=== PATIENT | female | born 1975 | race Caucasian/White ===

== ENCOUNTER 2022-06-27 12:11 | Inpatient (IN) | payer MEDICAID ==
[~2022-06-27] VITALS: Ht 172.7 cm; Wt 98.4 kg
--- NOTE | 2022-06-27 12:18 | NUR ---
Patient bibra88 for sob, HHn w albuterol during transport, on cpap upon arrival. Connected to the monitor and pulse ox. Kept comfortable, will continue to monitor accordingly.
[2022-06-27] MEDS ORDERED: Magnesium 1GM/D5W 100ML PREMIX 100 ML IV ONE (12:19)
[2022-06-27] MEDS ORDERED: methylPREDNISolone SOD SUCC 125 MG/2ML VIAL ONE (12:19)
[2022-06-27] MEDS ORDERED: ALBUTEROL FS 2.5 MG/3 ML VIAL.NEB CONTNEB ONE ×2 (12:30→15:00)
[2022-06-27] MEDS ORDERED: IPRATROPIUM NEB FS 0.5 MG/2.5 ML AMPUL.NEB NEB ONE ×2 (12:30→15:00)
[2022-06-27] MEDS ORDERED: Magnesium 1GM/D5W 100ML PREMIX 200 ML IV ONE (12:30)
[2022-06-27] MEDS ORDERED: methylPREDNISolone SOD SUCC 125 MG/2ML VIAL IV ONE (12:30)
[2022-06-27 12:32] LABS: ABG BASE EXCESS -0.5 mmol/L; ABG PCO2 29.8 mmHg (35.0-45.0); ABG PH 7.482 (7.350-7.450); ABG PO2 66.3 mmHg (75.0-100.0); COHb 0.5 % (0.5-1.5); MetHb 0.2 % (0.0-1.5); O2Hb 93.4 % (94.0-97.0); SITE, ABG Left Radial; VENT MODE, BG CPAP
[2022-06-27 12:37] LABS: BASOPHILS # (AUTO) 0.1 K/uL (0.0-0.2); BASOPHILS % (AUTO) 0.9 % (0.0-2.0); EOSINOPHILS % (AUTO) 2.5 % (0.0-6.0); HEMATOCRIT 45 % (33-45); HEMOGLOBIN 15.4 g/dL (11.5-14.8); LYMPHOCYTES % (AUTO) 23.1 % (20.0-44.0); MEAN CORPUSCULAR HGB CONC 34 g/dl (31.0-36.0); MEAN CORPUSCULAR VOLUME 91 fL (82-100); MONOCYTES # (AUTO) 0.5 K/uL (0.1-1.30); MONOCYTES % (AUTO) 5.9 % (2.0-12.0); NEUTROPHILS # (AUTO) 5.9 K/uL (1.8-8.9); NEUTROPHILS % (AUTO) 67.6 % (43.0-81.0); PLATELET COUNT (AUTO) 263 K/uL (150-450); RED BLOOD CELL COUNT(AUTO) 4.98 MIL/uL (4.0-5.2); WHITE BLOOD COUNT (AUTO) 8.7 K/uL (4.3-11.0)
[2022-06-27] MEDS ORDERED: IPRA3AMP23 NEB (12:51)
[2022-06-27] MEDS ORDERED: LOSA25TA27 PO (12:51)
[2022-06-27] MEDS ORDERED: ALBU18HF2 IH (12:51)
[2022-06-27] MEDS ORDERED: TIOT4MIS2 INH (12:51)
[2022-06-27] MEDS ORDERED: MONT10TA22 PO (12:51)
[2022-06-27] MEDS ORDERED: VANCOMYCIN 1 GM in IV D5W 250 ML IV ONE (13:00)
[2022-06-27] MEDS ORDERED: PIPERACILLIN /TAZOBACTAM 3.375 G in IV D5W 50 ML IV ONE (13:00)
--- NOTE | 2022-06-27 13:02 | NUR ---
MOVE SHEET SUBMITTED.
[2022-06-27] MEDS ORDERED: FLUT1BLS IH (13:12)
--- NOTE | 2022-06-27 13:15 | NUR ---
covid swab and flu collected and sent to lab.
[2022-06-27] MEDS ORDERED: ALBUTEROL FS 2.5 MG/3 ML VIAL.NEB ONE ×3 (14:11→19:46)
[2022-06-27] MEDS ORDERED: IPRATROPIUM NEB FS 0.5 MG/2.5 ML AMPUL.NEB ONE ×3 (14:12→19:46)
[2022-06-27 14:17] LABS: CALCIUM, SERUM 9.1 mg/dL (8.5-10.1); CARBON DIOXIDE 21 mmol/L (21-32); CHLORIDE 104 mmol/L (98-107); GLUCOSE 126 mg/dL (74-106); POTASSIUM 4.1 mmol/L (3.5-5.1); SODIUM SERUM 138 mmol/L (136-145); UREA NITROGEN, BLOOD 18 mg/dL (7-18)
[2022-06-27 14:28] LABS: ALANINE AMINOTRANSFERASE 44 U/L (12-78); ALBUMIN 4.6 g/dL (3.4-5.0); ALKALINE PHOSPHATASE 76 U/L (46-116); ASPARTATE AMINOTRANSFERASE 20 U/L (15-37); BILIRUBIN,DIRECT 0.1 mg/dL (0.0-0.2); BILIRUBIN,TOTAL 0.6 mg/dL (0.2-1.0); TOTAL PROTEIN, SERUM 7.8 g/dL (6.4-8.2)
[2022-06-27] MEDS ORDERED: TERBUTALINE SULFATE 1 MG/ML VIAL SQ PRN (14:30)
--- NOTE | 2022-06-27 14:46 | NUR ---
[facility] CALLED AUTOMATIC RIVETING MACHINE OPERATOR PAGED.
[2022-06-27] MEDS ORDERED: ACETYLCYSTEINE 10% SOLN 400 MG/4 ML VIAL NEB ONE (15:00)
[2022-06-27 15:28] LABS: ABG BASE EXCESS -1.6 mmol/L; ABG PCO2 18.7 mmHg (35.0-45.0); ABG PH 7.585 (7.350-7.450); ABG PO2 462.4 mmHg (75.0-100.0); COHb 0.3 % (0.5-1.5); MetHb 0.1 % (0.0-1.5); SITE, ABG Right Radial; VENT MODE, BG HFNC 40L 100%
[2022-06-27] MEDS: IPRATROPIUM NEB FS 0.5 MG/2.5 ML AMPUL.NEB NEB SCH ×3 (15:46→21:07)
[2022-06-27] MEDS: ALBUTEROL FS 2.5 MG/3 ML VIAL.NEB NEB SCH ×4 (15:46→23:23)
[2022-06-27] MEDS ORDERED: LEVOFLOXACIN 750 MG /D5W 150ML 150 ML IV ONE (16:24)
[2022-06-27] MEDS ORDERED: MAG HYDROX/AL HYDROX/SIMETH 30 ML UDC PO PRN (16:30)
[2022-06-27] MEDS ORDERED: ONDANSETRON HCL/PF 4 MG/2 ML VIAL IVP PRN (16:30)
[2022-06-27] MEDS ORDERED: Medication Not On Formulary EA (Ipratropium/Albuterol Sulfate (Duoneb 2.5-0.5 Mg/3 Ml So NEB PRN (16:30)
[2022-06-27] MEDS ORDERED: FUROSEMIDE 40 MG/4 ML VIAL IV ONE (16:30)
[2022-06-27] MEDS ORDERED: Z GUARD REMEDY 4 OZ OINT TP PRN (16:30)
[2022-06-27] MEDS ORDERED: MAGNESIUM HYDROXIDE 30 ML UDC PO PRN (16:30)
[2022-06-27] MEDS: LEVOFLOXACIN 750 MG /D5W 150ML 150 ML IV SCH (16:35)
[2022-06-27] MEDS ORDERED: FUROSEMIDE 20 MG/2 ML VIAL ONE (16:37)
[2022-06-27] MEDS ORDERED: ALBUTEROL FS 2.5 MG/0.5 ML VIAL.NEB NEB PRN (17:00)
[2022-06-27] MEDS ORDERED: ENOXAPARIN SODIUM 40 MG/0.4 ML DISP.SYRIN SQ SCH (19:00)
--- NOTE | 2022-06-27 19:05 | NUR ---
REC'D REPORT FROM BETH RUBY FOR [facility]
[2022-06-27] MEDS ORDERED: ENOXAPARIN SODIUM 40 MG/0.4 ML DISP.SYRIN SQ ONE (19:09)
--- NOTE | 2022-06-27 19:17 | NUR ---
bed 256 given
[2022-06-27] MEDS ORDERED: ALBUTEROL FS 2.5 MG/0.5 ML VIAL.NEB NEB SCH (19:30)
[2022-06-27] MEDS ORDERED: IPRATROPIUM NEB FS 0.5 MG/2.5 ML AMPUL.NEB NEB SCH (19:30)
[2022-06-27] MEDS: BUDESONIDE RESPULE INH 0.5 MG/2 ML AMPUL.NEB NEB SCH (19:58)
--- NOTE | 2022-06-27 20:01 | NUR ---
GAVE REPORT TO BETH GASTELUM FOR [facility]
[2022-06-27] MEDS: IV D5/ 0.9% NACL 1,000 ML IV PRN (20:35)
[2022-06-27] MEDS: methylPREDNISolone SOD SUCC 125 MG/2ML VIAL IV SCH (20:49)
[2022-06-27 21:00] VITALS: BP 116/62
[2022-06-27] MEDS ORDERED: HEPARIN SODIUM, PORCINE 5000 UNITS/1 ML VIAL SQ SCH (21:00)
[2022-06-27 21:34] VITALS: BP 110/68
[2022-06-27 22:00] VITALS: BP 109/70
[2022-06-27 23:00] VITALS: BP 105/84
[2022-06-27] MEDS: ACETAMINOPHEN 325 MG TABLET PO PRN (23:23)
[2022-06-27] MEDS: IPRATROPIUM NEB FS 0.5 MG/2.5 ML AMPUL.NEB NEB PRN (23:23)
[2022-06-28] VITALS (24 sets, daily range): BP systolic 99–138; BP diastolic 51–88
--- NOTE | 2022-06-28 01:07 | NUR ---
MOLD MAKER HELPER. ADMISSION. RECEIVED THE PT FROM ER VIA [facility]. PT IA ADMITTED FOR RESP/FAILURE. PNA. HOB ELEVATED. OXYGEN HIGH FLOW 40L AND 35%. SAT 96%. PT IS TACHYPNEIC IV RT AND LT HAND, IVF D5NS @ 100 ML/H. BRICK TOSSER SHOWING NSR. WILL CONTINUE TO MONITOR VITALS.
[2022-06-28] MEDS: IPRATROPIUM NEB FS 0.5 MG/2.5 ML AMPUL.NEB NEB SCH ×3 (01:11→08:20)
[2022-06-28] MEDS: ALBUTEROL FS 2.5 MG/3 ML VIAL.NEB NEB SCH ×4 (01:11→07:45)
[2022-06-28 05:05] LABS: BASOPHILS % (AUTO) 0.1 % (0.0-2.0); HEMATOCRIT 44 % (33-45); HEMOGLOBIN 14.4 g/dL (11.5-14.8); LYMPHOCYTES # (AUTO) 0.6 K/uL (0.8-4.8); MEAN CORPUSCULAR HGB CONC 33 g/dl (31.0-36.0); MEAN CORPUSCULAR VOLUME 91 fL (82-100); MONOCYTES # (AUTO) 0.2 K/uL (0.1-1.30); MONOCYTES % (AUTO) 1.3 % (2.0-12.0); NEUTROPHILS # (AUTO) 15.2 K/uL (1.8-8.9); NEUTROPHILS % (AUTO) 94.6 % (43.0-81.0); PLATELET COUNT (AUTO) 304 K/uL (150-450); RED BLOOD CELL COUNT(AUTO) 4.79 MIL/uL (4.0-5.2)
[2022-06-28 05:22] LABS: CALCIUM, SERUM 8.9 mg/dL (8.5-10.1); CREATININE 1.2 mg/dL (0.6-1.3); MAGNESIUM 2.1 mg/dL (1.8-2.4); PHOSPHORUS 2.3 mg/dL (2.5-4.9); POTASSIUM 3.7 mmol/L (3.5-5.1)
--- NOTE | 2022-06-28 05:42 | NUR ---
floriculturist. am care given. remaining same oxygen tolerated well. sat 98%. laboratory monitor showing nsr. iv rt and lt hand ivf d5ns 100ml/h. will continue to monitor vitals.
[2022-06-28] MEDS: ACETAMINOPHEN 325 MG TABLET PO PRN (05:48)
[2022-06-28] MEDS: methylPREDNISolone SOD SUCC 125 MG/2ML VIAL IV SCH ×3 (05:48→20:59)
[2022-06-28] MEDS: IV D5/ 0.9% NACL 1,000 ML IV PRN (05:52)
--- NOTE | 2022-06-28 07:05 | NUR ---
RN NOTES RECEIVED PT ON BED, A/Ox4. ON HIGH FLOW O2 , 40L , 30 %, O2 SAT WNL, ON TELE SR HR IN 80'S , IV SITE CDI,IVF AT 100CC/HR RUNNING ,SR UP X3, CALL LIGHT WITHIN EASY REACH, BED LOCKED AND IN LOWEST POSITION, CONTIUE TO MONITOR
[2022-06-28] MEDS: BUDESONIDE RESPULE INH 0.5 MG/2 ML AMPUL.NEB NEB SCH ×2 (08:20→16:19)
[2022-06-28] MEDS: POTASSIUM PHOSPHATE MM 7.5 MMOL in IV NS 0.9% 100 ML IV SCH ×2 (08:30→10:58)
[2022-06-28] MEDS: MONTELUKAST SODIUM (10MG) 10 MG TABLET PO SCH (08:32)
[2022-06-28] MEDS: LOSARTAN POTASSIUM 25 MG TABLET PO SCH (08:32)
[2022-06-28] MEDS: HEPARIN SODIUM, PORCINE 5000 UNITS/1 ML VIAL SQ SCH ×2 (08:34→21:00)
[2022-06-28] MEDS ORDERED: FLUTICASONE/VILANTEROL 1 EACH BLST.W.DEV IH SCH (09:00)
[2022-06-28] MEDS ORDERED: Medication Not On Formulary EA (Tiotropium Bromide (Spiriva Respimat) 2 PUFF) INH SCH (09:00)
[2022-06-28] MEDS: IPRATROPIUM BROMIDE 14 GM INHALER (or 12.9 GM) IH SCH ×3 (11:30→23:30)
[2022-06-28] MEDS: ALBUTEROL FS 2.5 MG/0.5 ML VIAL.NEB NEB SCH ×4 (12:17→23:10)
--- NOTE | 2022-06-28 12:30 | NUR ---
RN NOTES PT ON 2L O2 N/C , O2 SAT WNL, SOB NOTED ON EXERTION, CONTINUE TO MONITOR .
[2022-06-28] MEDS: LEVOFLOXACIN 750 MG /D5W 150ML 150 ML IV SCH (16:03)
--- NOTE | 2022-06-28 18:16 | NUR ---
RN NOTES PT REMAINS ON 2 L O2 N/C , O2 SAT WNL, RESTING IN BED, WILL ENDORSE TO UPHOLSTERER APPRENTICE NURSE FOR CONTINUITY OF CARE
[2022-06-28] MEDS: IPRATROPIUM NEB FS 0.5 MG/2.5 ML AMPUL.NEB NEB PRN ×2 (19:37→20:45)
--- NOTE | 2022-06-28 22:41 | NUR ---
pt c/o sleep issues. PLASTIC BOAT BUFFER prescribed 15mg Restoril qhs.
[2022-06-28] MEDS: TEMAZEPAM 15 MG CAPSULE PO PRN (22:56)
[2022-06-29] VITALS (25 sets, daily range): BP systolic 112–157; BP diastolic 60–99
[2022-06-29] MEDS: IV D5/ 0.9% NACL 1,000 ML IV PRN ×2 (02:22→14:51)
[2022-06-29] MEDS: ALBUTEROL FS 2.5 MG/0.5 ML VIAL.NEB NEB SCH ×6 (03:31→22:54)
[2022-06-29 04:38] LABS: BASOPHILS % (AUTO) 0.1 % (0.0-2.0); HEMATOCRIT 37 % (33-45); HEMOGLOBIN 12.2 g/dL (11.5-14.8); LYMPHOCYTES # (AUTO) 0.4 K/uL (0.8-4.8); LYMPHOCYTES % (AUTO) 2.8 % (20.0-44.0); MEAN CORPUSCULAR HGB CONC 33 g/dl (31.0-36.0); MEAN CORPUSCULAR VOLUME 92 fL (82-100); MONOCYTES # (AUTO) 0.3 K/uL (0.1-1.30); MONOCYTES % (AUTO) 2.3 % (2.0-12.0); NEUTROPHILS # (AUTO) 13.2 K/uL (1.8-8.9); NEUTROPHILS % (AUTO) 94.8 % (43.0-81.0); PLATELET COUNT (AUTO) 208 K/uL (150-450); RED BLOOD CELL COUNT(AUTO) 4.02 MIL/uL (4.0-5.2)
[2022-06-29 04:50] LABS: CALCIUM, SERUM 8.2 mg/dL (8.5-10.1); POTASSIUM 4.1 mmol/L (3.5-5.1)
--- NOTE | 2022-06-29 06:24 | NUR ---
pt was awake for the most part of the night but finally able to fall asleep in the morning. uo 900. no c/o pain. o2 sats were maintained as long as patient was not out of bed moving. pt did contemplate leaving at the beginning of the shift but decided to stay.
[2022-06-29] MEDS: methylPREDNISolone SOD SUCC 125 MG/2ML VIAL IV SCH ×3 (06:28→20:47)
--- NOTE | 2022-06-29 07:07 | NUR ---
RN OPEN NOTE RECEIVED THE PT IN BED .PATIENT IS ON 3 L OF O2 VIA N/C , ALERT , ORIENTED TIMES4 HOB ELEVATED. SAT 96%. PT IS TACHYPNEIC IV RT AND 20 G , IVF D5NS @ 100 ML/H. MANAGER HOME IMPROVEMENT SHOWING NSR. WILL CONTINUE TO MONITOR
[2022-06-29] MEDS: IPRATROPIUM NEB FS 0.5 MG/2.5 ML AMPUL.NEB NEB PRN ×2 (08:00→19:39)
[2022-06-29] MEDS: BUDESONIDE RESPULE INH 0.5 MG/2 ML AMPUL.NEB NEB SCH ×2 (08:02→16:14)
[2022-06-29] MEDS: MONTELUKAST SODIUM (10MG) 10 MG TABLET PO SCH (08:35)
[2022-06-29] MEDS: LOSARTAN POTASSIUM 25 MG TABLET PO SCH (08:37)
[2022-06-29] MEDS: HEPARIN SODIUM, PORCINE 5000 UNITS/1 ML VIAL SQ SCH ×2 (08:38→20:48)
[2022-06-29] MEDS: ACETAMINOPHEN 325 MG TABLET PO PRN (12:23)
[2022-06-29] MEDS: CEFEPIME 2 GM in IV D5W 100 ML IV SCH ×2 (12:25→20:47)
[2022-06-29] MEDS: LORAZEPAM 0.5 MG TABLET PO PRN (15:09)
[2022-06-29] MEDS: LEVOFLOXACIN 750 MG /D5W 150ML 150 ML IV SCH (15:22)
--- NOTE | 2022-06-29 19:03 | NUR ---
RN LOSING NOTE PATIENT IS ALERT , ORIENTED TIMES 4 , ON O2 5 L VIA N/C O2 SAT 98 %.PATIENT HAS SALINE LOCK ON R HAND 20 G NS D5 RUNNING AT 100 ML/HR.PATIENT CONNECTED TO [employer] URINE IS YELLOW CLEAR PATIENT HAD ONE BM TODAY .PATIENT IS ON REGULAR DIET. ALL MEDICATIONS DUE WERE GIVEN ,ALL NEEDS WERE MET . BED IS AT LOWEST POSITION , CALL LIGHT WITHIN REACH, BED SIDE RAILS ARE UP .WILL ENDORSE CLOAK ROOM ATTENDANT NURSE TO FALLOW POC.
--- NOTE | 2022-06-29 20:00 | NUR ---
Received patient AA/OX4.VSS.SR.With O2 5L NC saturation ((
--- NOTE | 2022-06-29 20:00 | NUR ---
Received patient AA/OX4.VSS.SR.Normotensive.With O2 2LNC saturation 99%.No acute distress noted.IVF infusing site intact.Pure wick in place with clear yellow urine.Denies pain or sob.Patient move in bed independently. Safety precaution maintained.Call light at bedside.
[2022-06-29] MEDS: TEMAZEPAM 15 MG CAPSULE PO PRN (20:48)
[2022-06-30] VITALS (23 sets, daily range): BP systolic 80–168; BP diastolic 52–95
[2022-06-30] MEDS: IV D5/ 0.9% NACL 1,000 ML IV PRN ×2 (02:55→13:50)
[2022-06-30] MEDS: ALBUTEROL FS 2.5 MG/0.5 ML VIAL.NEB NEB SCH ×5 (03:29→20:16)
[2022-06-30] MEDS: CEFEPIME 2 GM in IV D5W 100 ML IV SCH ×3 (04:37→21:04)
[2022-06-30] MEDS: methylPREDNISolone SOD SUCC 125 MG/2ML VIAL IV SCH ×3 (04:38→21:03)
[2022-06-30] MEDS: ACETAMINOPHEN 325 MG TABLET PO PRN (05:08)
--- NOTE | 2022-06-30 05:30 | NUR ---
Patient able to sleep for a couple of hours.VSS.Bed bath rendered.Complete linens changed.Complaints of headache after bouts of dry cough.Pain medication administered.Patient had large volume of urine during the shift.No bm noted.Kept comfortable.
[2022-06-30 05:32] LABS: HEMATOCRIT 39 % (33-45); HEMOGLOBIN 13.1 g/dL (11.5-14.8); LYMPHOCYTES # (AUTO) 0.6 K/uL (0.8-4.8); LYMPHOCYTES % (AUTO) 3.5 % (20.0-44.0); MEAN CORPUSCULAR HGB CONC 33 g/dl (31.0-36.0); MEAN CORPUSCULAR VOLUME 92 fL (82-100); MONOCYTES # (AUTO) 0.5 K/uL (0.1-1.30); NEUTROPHILS # (AUTO) 16.9 K/uL (1.8-8.9); NEUTROPHILS % (AUTO) 93.5 % (43.0-81.0); PLATELET COUNT (AUTO) 241 K/uL (150-450); RED BLOOD CELL COUNT(AUTO) 4.28 MIL/uL (4.0-5.2); WHITE BLOOD COUNT (AUTO) 18.1 K/uL (4.3-11.0)
[2022-06-30 05:47] LABS: CALCIUM, SERUM 8.1 mg/dL (8.5-10.1); POTASSIUM 3.7 mmol/L (3.5-5.1)
--- NOTE | 2022-06-30 07:30 | NUR ---
RN OPENING NOTE PT OBSERVED IN BED SLEEPING. PT IS ON 3L NC O2 SAT 96% TOLERATING WELL WITH NO SIGNS OF LABORED BREATHING OR DISTRESS. PT IS A/OX4 AND ON REGULAR DIET. IV ACCESS R GUALLPA 20 G INFUSING WITH D5NS@100ML/HR. BED IS LOCKED IN LOWEST POSITION, CALL LIGHT IS WITHIN REACH AND ALL HOSPITAL SAFETY MEASURES ARE IN PLACE. WILL CONTINUE TO MONITOR THIS SHIFT.
[2022-06-30] MEDS: MONTELUKAST SODIUM (10MG) 10 MG TABLET PO SCH (09:36)
[2022-06-30] MEDS: LOSARTAN POTASSIUM 25 MG TABLET PO SCH (09:36)
[2022-06-30] MEDS: HEPARIN SODIUM, PORCINE 5000 UNITS/1 ML VIAL SQ SCH ×2 (09:37→21:04)
[2022-06-30] MEDS: LORAZEPAM 0.5 MG TABLET PO PRN (09:53)
[2022-06-30] MEDS: BUDESONIDE RESPULE INH 0.5 MG/2 ML AMPUL.NEB NEB SCH ×2 (09:54→16:30)
[2022-06-30] MEDS ORDERED: TOCILIZUMAB 400 MG in IV NS 0.9% 80 ML IV ONE (10:00)
[2022-06-30 11:26] LABS: BAND % (MANUAL) 2 % (0.0-5.0); LYMPHOCYTES % (MANUAL) 4 % (16-48); MONOCYTES % (MANUAL) 2 % (0-11.0); NEUTROPHILS % (MANUAL) 92 (42-76)
[2022-06-30 11:58] LABS: FERRITIN 95 ng/mL (8-388)
[2022-06-30 12:02] LABS: C-REACTIVE PROTEIN < 0.2 mg/dL (0.0-0.9)
[2022-06-30] MEDS: LEVOFLOXACIN 750 MG /D5W 150ML 150 ML IV SCH (16:20)
[2022-06-30] MEDS: HYDROCODONE/APAP 5/325MG TABLET PO PRN ×2 (16:20→22:10)
--- NOTE | 2022-06-30 19:38 | NUR ---
RN CLOSING NOTE PT IS IN BED SLEEPING. PT IS ON 3L NC O2 SAT 97% TOLERATING WELL WITH NO SIGNS OF LABORED BREATHING OR DISTRESS. PT IS A/OX4 AND ON REGULAR DIET. IV ACCESS R GUALLPA 20 G INFUSING WITH D5NS@100ML/HR. BED IS LOCKED IN LOWEST POSITION, CALL LIGHT IS WITHIN REACH AND ALL HOSPITAL SAFETY MEASURES ARE IN PLACE. WILL ENDORSE TO SALES DESIGNER NURSE FOR [facility].
[2022-06-30] MEDS: TEMAZEPAM 15 MG CAPSULE PO PRN (21:13)
[2022-07-01] VITALS (19 sets, daily range): BP systolic 118–165; BP diastolic 60–99
[2022-07-01] MEDS: ALBUTEROL FS 2.5 MG/0.5 ML VIAL.NEB NEB SCH ×7 (00:06→23:30)
[2022-07-01] MEDS: IV D5/ 0.9% NACL 1,000 ML IV PRN ×2 (02:02→12:16)
[2022-07-01] MEDS: IPRATROPIUM NEB FS 0.5 MG/2.5 ML AMPUL.NEB NEB PRN (04:03)
[2022-07-01] MEDS: methylPREDNISolone SOD SUCC 125 MG/2ML VIAL IV SCH (05:18)
[2022-07-01] MEDS: CEFEPIME 2 GM in IV D5W 100 ML IV SCH ×3 (05:18→20:38)
[2022-07-01] MEDS: HYDROCODONE/APAP 5/325MG TABLET PO PRN ×3 (06:33→22:15)
--- NOTE | 2022-07-01 06:46 | NUR ---
Pt c/o inspiratory expiratory chest pain. norco given with good results. pt slept through most of the night. pt was on ra all night and was stating above 92%.
[2022-07-01] MEDS: BUDESONIDE RESPULE INH 0.5 MG/2 ML AMPUL.NEB NEB SCH ×2 (06:54→16:30)
--- NOTE | 2022-07-01 06:55 | NUR ---
RT RESP AEROSOLIZED HHN TX NOT TO BE GIVEN TO A COVID POSITIVE PATIENT. NURSING IS TO ADMINISTER MDI TX.
--- NOTE | 2022-07-01 07:30 | NUR ---
RN OPENING NOTE PT IS IN BED SLEEPING. PT IS ON RA SAT 97% TOLERATING WELL WITH NO SIGNS OF LABORED BREATHING OR DISTRESS. PT IS A/OX4 AND ON REGULAR DIET. IV ACCESS R GUALLPA 20 G INFUSING WITH D5NS@100ML/HR. BED IS LOCKED IN LOWEST POSITION, CALL LIGHT IS WITHIN REACH AND ALL HOSPITAL SAFETY MEASURES ARE IN PLACE. WILL MONITOR THIS SHIFT.
[2022-07-01] MEDS: MONTELUKAST SODIUM (10MG) 10 MG TABLET PO SCH (08:50)
[2022-07-01] MEDS: LOSARTAN POTASSIUM 25 MG TABLET PO SCH (08:50)
[2022-07-01] MEDS: HEPARIN SODIUM, PORCINE 5000 UNITS/1 ML VIAL SQ SCH ×2 (08:51→20:41)
[2022-07-01] MEDS ORDERED: methylPREDNISolone SOD SUCC 125 MG/2ML VIAL IV SCH (13:00)
[2022-07-01] MEDS: methylPREDNISolone SOD SUCC 40 MG/ML VIAL IV SCH ×2 (14:15→20:41)
--- NOTE | 2022-07-01 15:45 | NUR ---
RN NOTE: TRANSFER REPORT GIVEN TO BETH SOSA. PT STABLE AT THIS TIME AND TRANSFERRED TO #[id number] WITH ALL BELONGINGS.
--- NOTE | 2022-07-01 15:55 | NUR ---
BEDSIDE REPORT TAKEN FROM LEBRON FOR PT. TRANSFER FROM ICU TO [facility] RM 104, ISOLATION ROOM. PT. NO SSX OF DISTRESS NOTED.
[2022-07-01] MEDS: LEVOFLOXACIN 750 MG /D5W 150ML 150 ML IV SCH (16:53)
--- NOTE | 2022-07-01 19:30 | NUR ---
RN OPENING NOTE PT A&OX4. O2 SAT OF 95% ON RA. SKIN IS WARM AND DRY. PT STATES THAT HER LUNGS ARE HURTING FROM CONSTANT COUGHING. PT APPEARS TO BE ANXIOUS. SKIN IS INTACT. PACEMAKER NOTED. DC'D IV OF R HAND DUE TO LEAKING. DENIES OTHER NEEDS AT THIS TIME. SAFETY PRECAUTIONS IN PLACE. BED LOCKED AND AT LOWEST LEVEL. X2 RAILS UP AND CALL LIGHT WITHIN REACH.
[2022-07-01] MEDS: TEMAZEPAM 15 MG CAPSULE PO PRN (20:39)
[2022-07-01] MEDS: LORAZEPAM 0.5 MG TABLET PO PRN (21:01)
[2022-07-02 04:00] VITALS: BP 125/71
[2022-07-02] MEDS: CEFEPIME 2 GM in IV D5W 100 ML IV SCH (05:11)
[2022-07-02] MEDS: methylPREDNISolone SOD SUCC 40 MG/ML VIAL IV SCH (05:16)
--- NOTE | 2022-07-02 07:34 | NUR ---
RN CLOSING NOTE PT A&OX4. PT ON RA AND TOLERATING WELL. SKIN IS WARM AND DRY. DAY SHIFT NURSE MADE AWARE THAT PT REQUESTING PAIN MEDICATION. NO ACUTE SIGNS OF DISTRESS. DENIES OTHER NEEDS AT THIS TIME. SAFETY PRECAUTIONS IN PLACE. BED LOCKED AND AT LOWEST LEVEL. X2 RAILS UP AND CALL LIGHT WITHIN REACH.
[2022-07-02] MEDS: ALBUTEROL FS 2.5 MG/0.5 ML VIAL.NEB NEB SCH (07:35)
[2022-07-02 08:00] VITALS: BP 125/70
--- NOTE | 2022-07-02 08:00 | NUR ---
patient awake and alert oriented x4 resp unlabored no acute distress noted patient encouraged use of call light to make all needs known will continue to assess and evaluate seen by and exam to patient at this time
[2022-07-02] MEDS ORDERED: LORA-259 PO (08:55)
[2022-07-02] MEDS ORDERED: METH4TAB17 PO (08:55)
[2022-07-02] MEDS ORDERED: HYDR-3972 PO (08:55)
[2022-07-02] MEDS ORDERED: LEVO500T90 PO (08:55)
[2022-07-02] MEDS ORDERED: ALBU8.5H8 INH (08:55)
--- NOTE | 2022-07-02 09:00 | NUR ---
discharge orders writted and hep lock discontinued and no signs of redness or swelling noted
--- NOTE | 2022-07-02 09:50 | NUR ---
all discharge instructions given and stated that fulley understanding and signed for discharge note patient discharge with family member and condition satisfactory patient will make with PMD for follow up check call if any problems occurs no sob or resp distress noted R/A pulse ox 95% on discharge
== END 2022-07-02 09:50 | disposition home or self-care (01) | DRG 137 ==
LOC: ER 12:11 → ICU 19:51 → MEDSG1 07-01 15:50
PROVIDERS: ADMIT Internal Medicine; ATTEND Nurse Practitioner Acute Care
PROC: 5A09357 Assistance with Respiratory Ventilation, Less than 24 Consecutive Hours, Continuous Positive Airway Pressure (ICD-10-PCS; 2022-06-27)
PROC: XW033H5 Introduction of Tocilizumab into Peripheral Vein, Percutaneous Approach, New Technology Group 5 (ICD-10-PCS; principal; 2022-06-30)
DX: U07.1 COVID-19 (principal); J96.01 Acute respiratory failure with hypoxia; J12.82 Pneumonia due to coronavirus disease 2019; J45.901 Unspecified asthma with (acute) exacerbation; E87.20 Acidosis, unspecified; J18.9 Pneumonia, unspecified organism; Z95.2 Presence of prosthetic heart valve; Z88.8 Allergy status to other drugs, medicaments and biological substances; Z79.51 Long term (current) use of inhaled steroids; Z79.899 Other long term (current) drug therapy; E66.9 Obesity, unspecified; Z68.33 Body mass index [BMI] 33.0-33.9, adult; I10 Essential (primary) hypertension
CPT/HCPCS: 36415; 36600; 71045-TC; 80048-TC; 80076-TC; 82728-TC; 82803-TC; 83605-TC; 83615-TC; 83735-TC; 83880; 84100-TC; 84484-TC; 84703-TC; 85025-TC; 85378-TC; 86140-TC; 87040-TC; 87081-TC; 93307-TC; 94760-TC; 94799-TC; 99082-TC; C9803; G0378; J0692; J1644; J1650; J1940; J1956; J2543; J2920; J2930; J3370; J3475; J3490; J7030; J7042; J7050; J7060; U0003